=== PATIENT | female | born 1960 | race Caucasian/White ===

== ENCOUNTER 2018-05-18 19:21 | Inpatient (IN) | payer MEDICAID ==
[2018-05-18 22:19] LABS: ADD MAN DIFF? NO
[2018-05-18 22:20] LABS: WHITE BLOOD COUNT 7.9 10^3/ul (4.8-10.8)
[2018-05-18 22:20] LABS: BASOPHILS % 0.4 % (0.0-2.0); EOSINOPHILS # 0.2 10^3/ul (0.0-0.5); EOSINOPHILS % 1.9 % (0.0-7.0); HEMATOCRIT 24.5 % (37.0-47.0); HEMOGLOBIN 8.1 g/dl (12.0-16.0); LYMPHOCYTES # 1.1 10^3/ul (0.8-2.9); LYMPHOCYTES % 14.1 % (15.0-51.0); MEAN CORPUSCULAR HEMOGLOBIN 28.5 pg (29.0-33.0); MEAN CORPUSCULAR HGB CONC 33.1 g/dl (32.0-37.0); MEAN CORPUSCULAR VOLUME 86.3 fl (82.0-101.0); MEAN PLATELET VOLUME 9.1 fl (7.4-10.4); MONOCYTE # 1.2 10^3/ul (0.3-0.9); MONOCYTES % 14.6 % (0.0-11.0); NEUTROPHIL # 5.4 10^3/ul (1.6-7.5); NEUTROPHILS % 68.6 % (39.0-77.0); PLATELET COUNT 368 10^3/UL (140-415); RED BLOOD COUNT 2.84 10^6/ul (4.20-5.40)
[2018-05-18] MEDS: SOD CHLORIDE 0.9% 500 ML IV (22:20)
[2018-05-18 22:36] LABS: ALANINE AMINOTRANSFERASE 46 IU/L (13-69); ALBUMIN 3.5 g/dl (3.3-4.9); ALKALINE PHOSPHATASE 212 IU/L (42-121); ANION GAP 9 (5-13); ASPARTATE AMINO TRANSFERASE 40 IU/L (15-46); BILIRUBIN,INDIRECT 0.5 mg/dl (0-1.1); BILIRUBIN,TOTAL 0.5 mg/dl (0.2-1.3); BLOOD UREA NITROGEN 12 mg/dl (7-20); CALCIUM 8.9 mg/dl (8.4-10.2); CARBON DIOXIDE 29 mmol/L (21-31); CHLORIDE 103 mmol/L (97-110); CREATININE 0.52 mg/dl (0.44-1.00); Estimated GFR > 60 mL/min (>60); GLUCOSE 135 mg/dl (70-220); SODIUM 141 mmol/L (135-144)
[2018-05-18 22:39] LABS: POTASSIUM 2.9 mmol/L (3.5-5.1)
[2018-05-18 22:48] LABS: B-TYPE NATRIURETIC PEPTIDE 311 PG/ML (0-125); TROPONIN-I < 0.012 ng/ml (0.000-0.120)
[2018-05-18] MEDS: POTASSIUM CHLORIDE (SR) 20 MEQ TAB PO (23:02)
[2018-05-18] MEDS: ONDANSETRON 4 MG INJ IV (23:02)
[2018-05-18] MEDS: HYDROmorphONE 1 MG/ML SYG IV (23:03)
[2018-05-18] MEDS: NICARDipine HCL 30 MG CAPSULE PO (23:34)
[2018-05-19] MEDS ORDERED: DOCUSATE SODIUM 100 MG CAP PO (01:30)
[2018-05-19] MEDS ORDERED: NITROGLYCERIN (SL) 0.4 MG TAB SL (01:30)
[2018-05-19] MEDS ORDERED: BISACODYL (EC) 5 MG TAB PO (01:30)
[2018-05-19] MEDS ORDERED: ACETAMINOPHEN 325 MG TAB PO (01:30)
[2018-05-19] MEDS ORDERED: NACL 0.9% 3 ML SYG IV (01:30)
[2018-05-19] MEDS ORDERED: ONDANSETRON 4 MG INJ IV ×2 (01:30)
[2018-05-19] MEDS: POTASSIUM CHLORIDE (SR) 20 MEQ TAB PO ×3 (03:45→09:20)
[2018-05-19] MEDS: ACETAMINOPHEN 325 MG TAB PO ×2 (03:46→16:23)
[2018-05-19] MEDS: FUROSEMIDE 20 MG INJ IV (03:47)
[2018-05-19 06:27] LABS: CREATINE KINASE 106 IU/L (23-200)
[2018-05-19 06:28] LABS: HEMOGLOBIN A1C 5.5 % (0-5.9); MAGNESIUM 1.6 mg/dl (1.7-2.5)
[2018-05-19 06:28] LABS: CHOLESTEROL 163 mg/dl (100-200); HDL CHOLESTEROL 40 mg/dl (37-92); LDL CHOLESTEROL,CALCULATED 106 mg/dl; TRIGLYCERIDES 85 mg/dl (0-149)
[2018-05-19 06:41] LABS: CK INDEX 0.2; CK-MB 0.24 ng/ml (0.0-2.4); TROPONIN-I < 0.012 ng/ml (0.000-0.120)
[2018-05-19 07:05] LABS: ADD MAN DIFF? NO
[2018-05-19 07:08] LABS: WHITE BLOOD COUNT 7.4 10^3/ul (4.8-10.8)
[2018-05-19 07:08] LABS: BASOPHILS % 0.3 % (0.0-2.0); EOSINOPHILS # 0.2 10^3/ul (0.0-0.5); EOSINOPHILS % 2.2 % (0.0-7.0); HEMATOCRIT 21.3 % (37.0-47.0); HEMOGLOBIN 7.2 g/dl (12.0-16.0); LYMPHOCYTES % 13.7 % (15.0-51.0); MEAN CORPUSCULAR HEMOGLOBIN 28.9 pg (29.0-33.0); MEAN CORPUSCULAR HGB CONC 33.8 g/dl (32.0-37.0); MEAN CORPUSCULAR VOLUME 85.5 fl (82.0-101.0); MEAN PLATELET VOLUME 9.7 fl (7.4-10.4); MONOCYTE # 1.1 10^3/ul (0.3-0.9); MONOCYTES % 14.2 % (0.0-11.0); NEUTROPHIL # 5.1 10^3/ul (1.6-7.5); NEUTROPHILS % 69.1 % (39.0-77.0); PLATELET COUNT 397 10^3/UL (140-415); RED BLOOD COUNT 2.49 10^6/ul (4.20-5.40); RED CELL DISTRIBUTION WIDTH 12.2 % (11.5-14.5)
[2018-05-19 07:19] LABS: ALANINE AMINOTRANSFERASE 49 IU/L (13-69); ALBUMIN 3.4 g/dl (3.3-4.9); ALBUMIN/GLOBULIN RATIO 1.17; ALKALINE PHOSPHATASE 187 IU/L (42-121); ANION GAP 8 (5-13); ASPARTATE AMINO TRANSFERASE 37 IU/L (15-46); BILIRUBIN,INDIRECT 0.4 mg/dl (0-1.1); BILIRUBIN,TOTAL 0.4 mg/dl (0.2-1.3); BLOOD UREA NITROGEN 8 mg/dl (7-20); CALCIUM 8.5 mg/dl (8.4-10.2); CARBON DIOXIDE 29 mmol/L (21-31); CHLORIDE 100 mmol/L (97-110); CREATININE 0.47 mg/dl (0.44-1.00); Estimated GFR > 60 mL/min (>60); GLUCOSE 141 mg/dl (70-220); IRON 15 ug/dl (35-150); SODIUM 137 mmol/L (135-144); TOTAL PROTEIN 6.3 g/dl (6.1-8.1)
[2018-05-19 07:22] LABS: POTASSIUM 2.9 mmol/L (3.5-5.1)
[2018-05-19 07:29] LABS: % IRON SATURATION 5 % SAT (22-52); TOTAL IRON BINDING CAPACITY 275 ug/dl (241-421)
[2018-05-19 07:50] LABS: C-REACTIVE PROTEIN 14.1 mg/dl (0.0-0.9)
[2018-05-19] MEDS: KETOROLAC 15 MG INJ IV (08:08)
[2018-05-19] MEDS: ASPIRIN 81 MG TAB PO (08:10)
[2018-05-19 08:24] LABS: LACTIC ACID 0.9 mmol/L (0.5-2.0)
[2018-05-19 08:46] LABS: ETHANOL < 10.0 mg/dl (0-0)
[2018-05-19 09:02] LABS: ERYTHROCYTE SEDIMENTATION RATE 102 mm/Hr (0-30)
[2018-05-19] MEDS: LISINOPRIL 20 MG TAB PO (09:21)
[2018-05-19] MEDS: MAGNESIUM SULFATE 2 GM/50 ML 50 ML IVPB (09:24)
[2018-05-19] MEDS: IOHEXOL 300MG/ML 150 ML BTL (10:24)
[2018-05-19] MEDS: SOD CHLORIDE 0.9% 100 ML (10:24)
[2018-05-19] MEDS: ENALAPRILAT 1.25 MG INJ IV ×2 (11:12→16:25)
[2018-05-19 11:45] LABS: AMPHETAMINE/METHAMPHETAMINE Negative (NEGATIVE); BARBITURATES Negative (NEGATIVE); BENZODIAZEPINES Negative (NEGATIVE); CANNABINOIDS Negative (NEGATIVE); COCAINE Negative (NEGATIVE); OPIATES Negative (NEGATIVE)
[2018-05-19] MEDS: PANTOPRAZOLE (EC) 40 MG TAB PO (12:54)
[2018-05-19] MEDS: COLCHICINE 0.6 MG TAB PO ×2 (12:54→23:16)
[2018-05-19] MEDS: AMLODIPINE 5 MG TAB PO (12:55)
[2018-05-19 12:59] LABS: CREATINE KINASE 132 IU/L (23-200)
[2018-05-19] MEDS: IBUPROFEN 600 MG TAB PO ×2 (13:00→23:16)
[2018-05-19 13:01] LABS: ADD UMIC YES; UR ASCORBIC ACID NEGATIVE (NEGATIVE); UR BACTERIA FEW /HPF (NONE SEEN); UR BILIRUBIN (Dip) NEGATIVE (NEGATIVE); UR BLOOD (Dip) 3+ mg/dL (NEGATIVE); UR CLARITY CLEAR (CLEAR); UR COLOR YELLOW (YELLOW); UR GLUCOSE (Dip) NEGATIVE (NEGATIVE); UR KETONES (Dip) 1+ mg/dL (NEGATIVE); UR LEUKOCYTE ESTERASE (Dip) NEGATIVE Leu/ul (NEGATIVE); UR NITRITE (Dip) NEGATIVE (NEGATIVE); UR RBC 61 /HPF (0-5); UR SPECIFIC GRAVITY (Dip) 1.006 (1.003-1.030); UR TOTAL PROTEIN (Dip) NEGATIVE (NEGATIVE); UR UROBILINOGEN (Dip) NEGATIVE (NEGATIVE); UR WBC 1 /HPF (0-5)
[2018-05-19 13:02] LABS: ANION GAP 8 (5-13); BLOOD UREA NITROGEN 6 mg/dl (7-20); CARBON DIOXIDE 30 mmol/L (21-31); CHLORIDE 101 mmol/L (97-110); CREATININE 0.49 mg/dl (0.44-1.00); Estimated GFR > 60 mL/min (>60); GLUCOSE 200 mg/dl (70-220); MAGNESIUM 2.5 mg/dl (1.7-2.5); POTASSIUM 3.8 mmol/L (3.5-5.1); SODIUM 139 mmol/L (135-144)
[2018-05-19] MEDS: SOD CHLORIDE 0.9% 250 ML IV* (13:03)
[2018-05-19 13:12] LABS: CK INDEX 0.2; CK-MB 0.26 ng/ml (0.0-2.4); TROPONIN-I < 0.012 ng/ml (0.000-0.120)
[2018-05-19 16:10] LABS: IMMEDIATE SPIN CROSSMATCH 1 1
[2018-05-19] MEDS: POLYETHYLENE GLYCOL 3350 119 GM POWDER PO (17:03)
[2018-05-19] MEDS: BISACODYL (EC) 5 MG TAB PO (17:03)
[2018-05-19] MEDS: MAGNESIUM CITRATE 300 ML BTL PO (18:05)
[2018-05-20 06:06] LABS: ADD MAN DIFF? NO
[2018-05-20 06:13] LABS: BASOPHILS % 0.4 % (0.0-2.0); EOSINOPHILS # 0.1 10^3/ul (0.0-0.5); HEMATOCRIT 30.1 % (37.0-47.0); HEMOGLOBIN 10.1 g/dl (12.0-16.0); LYMPHOCYTES # 1.2 10^3/ul (0.8-2.9); LYMPHOCYTES % 15.4 % (15.0-51.0); MEAN CORPUSCULAR HGB CONC 33.6 g/dl (32.0-37.0); MEAN CORPUSCULAR VOLUME 86.5 fl (82.0-101.0); MEAN PLATELET VOLUME 9.3 fl (7.4-10.4); MONOCYTE # 1.2 10^3/ul (0.3-0.9); MONOCYTES % 14.9 % (0.0-11.0); NEUTROPHIL # 5.5 10^3/ul (1.6-7.5); NEUTROPHILS % 67.9 % (39.0-77.0); PLATELET COUNT 438 10^3/UL (140-415); RED BLOOD COUNT 3.48 10^6/ul (4.20-5.40); RED CELL DISTRIBUTION WIDTH 12.5 % (11.5-14.5)
[2018-05-20] MEDS: POLYETHYLENE GLYCOL 3350 119 GM POWDER PO (06:27)
[2018-05-20] MEDS: BISACODYL (EC) 5 MG TAB PO (06:28)
[2018-05-20] MEDS: PANTOPRAZOLE (EC) 40 MG TAB PO (06:28)
[2018-05-20 06:57] LABS: ALANINE AMINOTRANSFERASE 49 IU/L (13-69); ALBUMIN 3.5 g/dl (3.3-4.9); ALBUMIN/GLOBULIN RATIO 1.06; ALKALINE PHOSPHATASE 208 IU/L (42-121); ANION GAP 8 (5-13); ASPARTATE AMINO TRANSFERASE 36 IU/L (15-46); BILIRUBIN,INDIRECT 0.6 mg/dl (0-1.1); BILIRUBIN,TOTAL 0.6 mg/dl (0.2-1.3); BLOOD UREA NITROGEN 7 mg/dl (7-20); CALCIUM 9.1 mg/dl (8.4-10.2); CARBON DIOXIDE 30 mmol/L (21-31); CHLORIDE 105 mmol/L (97-110); CREATININE 0.57 mg/dl (0.44-1.00); Estimated GFR > 60 mL/min (>60); GLUCOSE 140 mg/dl (70-220); POTASSIUM 3.8 mmol/L (3.5-5.1); SODIUM 143 mmol/L (135-144); TOTAL PROTEIN 6.8 g/dl (6.1-8.1)
[2018-05-20] MEDS: AMLODIPINE 10 MG TAB PO (08:10)
[2018-05-20] MEDS: LISINOPRIL 20 MG TAB PO (08:10)
[2018-05-20] MEDS: COLCHICINE 0.6 MG TAB PO ×2 (08:10→21:49)
[2018-05-20] MEDS: IBUPROFEN 600 MG TAB PO ×3 (08:11→21:49)
[2018-05-20] MEDS: CEFTRIAXONE 1 GM/50 ML (PMX) 50 ML IVPB (18:10)
[2018-05-20] MEDS: ACETAMINOPHEN 325 MG TAB PO (18:26)
[2018-05-20] MEDS: PROPOFOL 40 ML (19:31)
[2018-05-20] MEDS: LIDOCAINE 100 MG SYRINGE (19:32)
[2018-05-20] MEDS: FENTAnyl 50 MCG/ML VIAL (19:32)
[2018-05-21] MEDS ORDERED: ALBUTEROL/IPRATROPIUM (NEB) 3 ML AMP HHN ×2 (04:57→08:00)
[2018-05-21] MEDS ORDERED: FUROSEMIDE 20 MG INJ IV (05:00)
[2018-05-21] MEDS: PANTOPRAZOLE (EC) 40 MG TAB PO (05:53)
[2018-05-21] MEDS: COLCHICINE 0.6 MG TAB PO ×2 (09:08→21:13)
[2018-05-21] MEDS: IBUPROFEN 600 MG TAB PO ×3 (09:09→21:13)
[2018-05-21] MEDS: FUROSEMIDE 20 MG INJ IV (09:09)
[2018-05-21] MEDS: LISINOPRIL 20 MG TAB PO (09:09)
[2018-05-21] MEDS: AMLODIPINE 10 MG TAB PO (09:10)
[2018-05-21 12:37] LABS: OCCULT BLOOD STOOL NEGATIVE (NEGATIVE)
[2018-05-21] MEDS: CEFTRIAXONE 1 GM/50 ML (PMX) 50 ML IVPB (12:57)
[2018-05-22] MEDS: IBUPROFEN 600 MG TAB PO ×3 (03:26→21:35)
[2018-05-22 06:00] LABS: ADD MAN DIFF? NO
[2018-05-22 06:07] LABS: BASOPHIL # 0.1 10^3/ul (0.0-0.1); BASOPHILS % 0.7 % (0.0-2.0); EOSINOPHILS # 0.3 10^3/ul (0.0-0.5); EOSINOPHILS % 3.7 % (0.0-7.0); HEMATOCRIT 30.2 % (37.0-47.0); HEMOGLOBIN 9.8 g/dl (12.0-16.0); LYMPHOCYTES # 1.3 10^3/ul (0.8-2.9); LYMPHOCYTES % 16.7 % (15.0-51.0); MEAN CORPUSCULAR HEMOGLOBIN 28.2 pg (29.0-33.0); MEAN CORPUSCULAR HGB CONC 32.5 g/dl (32.0-37.0); MEAN PLATELET VOLUME 9.3 fl (7.4-10.4); MONOCYTES % 13.7 % (0.0-11.0); NEUTROPHIL # 4.9 10^3/ul (1.6-7.5); NEUTROPHILS % 64.7 % (39.0-77.0); PLATELET COUNT 434 10^3/UL (140-415); RED BLOOD COUNT 3.47 10^6/ul (4.20-5.40); RED CELL DISTRIBUTION WIDTH 12.6 % (11.5-14.5)
[2018-05-22 06:07] LABS: WHITE BLOOD COUNT 7.6 10^3/ul (4.8-10.8)
[2018-05-22] MEDS: PANTOPRAZOLE (EC) 40 MG TAB PO (06:07)
[2018-05-22 06:24] LABS: ANION GAP 10 (5-13); BLOOD UREA NITROGEN 11 mg/dl (7-20); CARBON DIOXIDE 29 mmol/L (21-31); CHLORIDE 102 mmol/L (97-110); CREATININE 0.64 mg/dl (0.44-1.00); Estimated GFR > 60 mL/min (>60); GLUCOSE 133 mg/dl (70-220); POTASSIUM 3.5 mmol/L (3.5-5.1); SODIUM 141 mmol/L (135-144)
[2018-05-22 06:26] LABS: MAGNESIUM 1.8 mg/dl (1.7-2.5)
[2018-05-22 06:26] LABS: PHOSPHORUS 4.6 mg/dl (2.5-4.9)
[2018-05-22] MEDS: COLCHICINE 0.6 MG TAB PO ×2 (08:36→21:35)
[2018-05-22] MEDS: LISINOPRIL 20 MG TAB PO (08:36)
[2018-05-22] MEDS: AMLODIPINE 10 MG TAB PO (08:36)
[2018-05-22] MEDS: ACETAMINOPHEN 325 MG TAB PO (10:38)
[2018-05-22] MEDS: CEFTRIAXONE 1 GM/50 ML (PMX) 50 ML IVPB (13:25)
[2018-05-22 18:42] LABS: ALDOSTERONE <1 ng/dL
[2018-05-22] MEDS: METOPROLOL 5 MG INJ IV (20:07)
[2018-05-23] MEDS: PANTOPRAZOLE (EC) 40 MG TAB PO (06:12)
[2018-05-23] MEDS: IBUPROFEN 600 MG TAB PO ×2 (08:34→13:43)
[2018-05-23] MEDS: AMLODIPINE 10 MG TAB PO (08:35)
[2018-05-23] MEDS: LISINOPRIL 20 MG TAB PO (08:35)
[2018-05-23] MEDS: COLCHICINE 0.6 MG TAB PO (08:35)
[2018-05-23] MEDS: CEFTRIAXONE 1 GM/50 ML (PMX) 50 ML IVPB (13:43)
[2018-05-23 15:52] LABS: RENIN, PLASMA 0.75 ng/mL/h (0.25-5.82)
== END 2018-05-23 16:20 | disposition home or self-care (01) | DRG 315 ==
LOC: E/R 19:21 → TEL 05-19 01:11
PROVIDERS: Pediatrics
PROC: 0DJ08ZZ Inspection of Upper Intestinal Tract, Via Natural or Artificial Opening Endoscopic (ICD-10-PCS; principal; 2018-05-20 14:24)
PROC: 0DJD8ZZ Inspection of Lower Intestinal Tract, Via Natural or Artificial Opening Endoscopic (ICD-10-PCS; 2018-05-20 14:24)
PROC: 30233N1 Transfusion of Nonautologous Red Blood Cells into Peripheral Vein, Percutaneous Approach (ICD-10-PCS; 2018-05-20 14:24)
DX: I30.1 Infective pericarditis (principal); N39.0 Urinary tract infection, site not specified; I16.0 Hypertensive urgency; D64.9 Anemia, unspecified; I11.0 Hypertensive heart disease with heart failure; I50.9 Heart failure, unspecified; E66.9 Obesity, unspecified; E87.6 Hypokalemia; K80.20 Calculus of gallbladder without cholecystitis without obstruction; K64.9 Unspecified hemorrhoids; K57.30 Diverticulosis of large intestine without perforation or abscess without bleeding
CPT/HCPCS: 36415; 36430; 70450; 71045; 71250; 74177; 76705; 80048; 80053; 80061; 80307; 81001; 82088; 82270; 82550; 82553; 82728; 83036; 83540; 83605; 83735; 83880; 84100; 84244; 84443; 84484; 85025; 85651; 86140; 86644; 86850; 86900; 86901; 86920; 87040; 87086; 93005; 93306; 93308; 96374; 96375; 99285-25